=== PATIENT | male | born 1945 | race Caucasian/White ===

== ENCOUNTER → 2018-06-28 13:25 | Outpatient (POV) | payer MEDICARE, SELFPAY | PROVIDERS: Family Provider Family Medicine; PCP Family Medicine; Visit Provider Dermatology | DX: Z00.00 Encounter for general adult medical examination without abnormal findings (principal) ==

== ENCOUNTER → 2018-11-15 12:50 | Outpatient (POV) | payer MEDICARE, SELFPAY | PROVIDERS: Visit Provider Dermatology | DX: Z00.00 Encounter for general adult medical examination without abnormal findings (principal) ==

== ENCOUNTER → 2018-12-27 15:19 | Outpatient (POV) | payer MEDICARE, SELFPAY | PROVIDERS: Visit Provider Dermatology | DX: Z00.00 Encounter for general adult medical examination without abnormal findings (principal) ==

== ENCOUNTER → 2019-01-17 14:01 | Outpatient (POV) | payer MEDICARE, SELFPAY | PROVIDERS: Visit Provider Dermatology | DX: Z00.00 Encounter for general adult medical examination without abnormal findings (principal) ==

== ENCOUNTER → 2019-07-04 12:58 | Outpatient (POV) | payer MEDICARE, SELFPAY | PROVIDERS: Visit Provider Dermatology | DX: Z00.00 Encounter for general adult medical examination without abnormal findings (principal) ==

== ENCOUNTER → 2019-07-12 13:30 | Outpatient (CLI) | payer MEDICARE, SELFPAY ==
--- NOTE | 2019-07-12 13:33 | CT_ITS ---
PROCEDURE: CT LUNG SCREENING CLINICAL INDICATION: H/O NICOTINE DEPENDENCE Fifty-three pack-year smoking history, asymptomatic for lung cancer COMPARISON: No exams were available for comparison TECHNIQUE: The exam was performed on a GE Light Speed [address] scanner using 2.90 mGy CTDI. A low dose helical CT CHEST was performed on a multi-detector scanner. All CT scans at the facility use one or more dose reduction, viz: automated exposure control, ma/kV adjustment per patient size (including targeted exams where dose is matched to indication, i.e. head), or iterative reconstruction technique. The LDCT was performed in a facility that meets the criteria for the screening program. Data regarding this exam was submitted to ACR which is an approved registry. The order for this exam indicates that it came as a result of a lung cancer screening counseling shard decision-making visit that included all the elements required of such a visit including smoking cessation. The radiologist interpreting this exam meets the CMS criteria for the LDCT lung cancer screening program. The exam is reported using the Lung-RADS classification scale and reported to the ACR registry. NOTE: This study was performed for the specific purposes of lung cancer screening and is not an alternative to diagnostic chest CT. RADIATION DOSE: CTDI vol(CT dose Index-volume) = 2.90mG DLP (Dose Length Product) = 106.81 mGcm FINDINGS: There is an 8 mm noncalcified fissural nodule at the junction of the right minor and major fissure laterally. Several small 3-4 mm nodular opacities are present in the upper lobes. COPD. OTHER FINDINGS: Coronary artery calcifications. There is mild pericardial thickening centrally at 16 mm. There is some mitral valve annular calcification noted. There is mild wedging involving T5-T6 and T7 which appears chronic IMPRESSION: 1. Lung rads category 3 probably benign finding regarding upper lobe nodular opacities and 8 mm fissural nodule on the right. Recommend six-month diagnostic CT follow-up. 2. Coronary artery disease with mild pericardial thickening Dictated by: Pablo Araya MD 07/12/2019 16:36 Electronically signed by Pablo Araya MD in [place] 07/23/2019 07:07
== END ==
PROVIDERS: PCP Family Medicine; Visit Provider Family Medicine
DX: Z87.891 Personal history of nicotine dependence (principal); Z12.2 Encounter for screening for malignant neoplasm of respiratory organs

== ENCOUNTER → 2019-11-07 09:45 | Outpatient (POV) | payer MEDICARE, SELFPAY | PROVIDERS: PCP Dermatology; Visit Provider Dermatology | DX: Z00.00 Encounter for general adult medical examination without abnormal findings (principal) ==

== ENCOUNTER → 2020-06-07 13:34 | Outpatient (CLI) | payer MEDICARE, SELFPAY ==
--- NOTE | 2020-06-07 13:44 | CT_ITS ---
PROCEDURE: CT CHEST WO/W CON CLINCAL INDICATION: PULMONARY NODULES Follow-up pulmonary nodules, abnormal screening study COMPARISON: CT CT LUNG SCREENING from 07/12/2019 TECHNIQUE: IV Contrast: 75ml Optiray 350 Axial images obtained with sagittal and coronal reformats. All CT scans at the facility use one or more dose reduction, viz: automated exposure control, ma/kV adjustment per patient size (including targeted exams where dose is matched to indication, i.e. head), or iterative reconstruction technique. FINDINGS: HEART AND MEDIASTINAL STRUCTURES: No mediastinal or hilar mass. Coronary artery calcifications are present. There is thickening of the pericardium anteriorly consistent with pericardial effusion measuring up 2 1.4 cm. There is nonspecific thickening of the esophagus. Unenhanced images demonstrates moderate coronary artery calcification as well as aortic valve calcification. LUNGS AND PLEURAL SPACES: COPD with faint reticular pattern. 8 mm fissural nodule once again noted on the right not significantly changed. Mild diffuse bronchial thickening. There is some scarring in the left lower lobe medially. There are few scattered small 2-3 mm nodules as before which are nonspecific. No new suspicious nodules are evident. BONY STRUCTURES: Degenerative changes thoracic spine UPPER ABDOMEN: Unremarkable. ADDITIONAL FINDINGS: No other significant abnormalities. IMPRESSION: Overall stable CT appearance of the chest. There is COPD with bronchial thickening and mildly prominent reticular/interstitial markings. Stable fissural nodule on the right and multiple 2-3 mm nodular opacities. No new suspicious nodules evident. Coronary artery disease with pericardial effusion which is slightly more prominent compared to the previous exam Recommend continued annual LDCT follow-up Dictated by: Pablo Araya MD 06/08/2020 13:40 Pablo Araya MD in [place] 06/08/2020 13:40
== END ==
PROVIDERS: PCP Family Medicine; Visit Provider Family Medicine
DX: R91.1 Solitary pulmonary nodule (principal)
CPT/HCPCS: 71270; Q9967

== ENCOUNTER 2020-12-07 09:03 | Emergency (ER) | payer MEDICARE, SELFPAY ==
[2020-12-07 09:08] VITALS: BP 129/79; PULSE 82; RESP 14; TEMP 36.6; O2SAT 95; BMI 38.0
--- NOTE | 2020-12-07 09:24 | HMH.EDUTC ---
[facility] [place] Disposition Clinical Impression: COVID-19 Disposition: Home, Self-Care Condition on Discharge: Good Instructions: DI for COVID-19 (Suspected or Confirmed ), Preventing the Spread of Coronavirus Discharge Instructions Referrals: Brendan Kathleen MD [Primary Care Provider] - Time of Disposition: 09:34 Medical Decision Making - Mark Inquiry Pt receiving controlled substance: No Vital Signs: 12/07/20 09:08 Temperature 97.9 F Temperature Source Tympanic Pulse Rate [Right] 82 Respiratory Rate 14 Blood Pressure [Right Arm] 129/79 Blood Pressure Mean [Right Arm] 95 Blood Pressure Source [Right Arm] Automatic Cuff Blood Pressure Position [Right Arm] Sitting 02 Sat by Pulse Oximetry 95 Oxygen Delivery Method Room Air Orders (Tests/Meds): ORDERS Category Date Time Status Covid-19 Nasal PCR ([facility]) Routine Lab 12/07/20 09:05 Received [facility] [place] HPI - General Chief complaint: Urgent Treatment Center Stated complaint: cov test Time Seen by Provider: 12/07/20 09:24 Mode of Arrival: Ambulatory Source of Information: Patient Limitations: No Limitations Description of Symptoms (Recalled from Triage Doc. by RN): pt needs a presurgical covid test. HEENT Symptoms (Recalled from RN notes): No Resp Symptoms (Recalled from RN notes): No Skin Symptoms (Recalled from RN notes): No MS Symptoms (Recalled from RN notes): No Functional Status (Recalled from RN notes): na - History of Present Illness Provider Complaint: 75 yr old male presents for covid test for a out pt colonoscopy in [facility] on wednesday - Related Data Home Medications Medication Instructions Recorded Confirmed albuterol sulfate 90 mcg/actuation 2 puffs INHALATION BID 11/27/19 11/27/20 aerosol inhaler amlodipine 5 mg tablet 5 mg PO BID tab 11/27/19 11/27/20 aspirin 81 mg tablet,delayed 81 mg PO DAILY 11/27/19 11/27/20 release atorvastatin 40 mg tablet 40 mg PO DAILY tab 11/27/19 11/27/20 finasteride 5 mg tablet 5 mg PO DAILY tab 11/27/19 11/27/20 losartan 100 mg tablet 100 mg PO DAILY tab 11/27/19 11/27/20 montelukast 10 mg tablet 10 mg PO DAILY tab 11/27/19 11/27/20 rlxijqlf-krwdpcwu-rhfvf acid 400 1 tab PO DAILY 11/27/19 11/27/20 mcg-vit K 20 mcg-lycop 300 mcg tablet ipratropium bromide 42 mcg (0.06 spray INTRANASAL 08/29/20 11/27/20 %) nasal spray tiotropium bromide 2.5 INHALATION 08/29/20 11/27/20 mcg/actuation mist for inhalation Previous Rx's Medication Instructions Recorded Benzonatate [Benzonatate 200mg Cap] 200 mg PO Q8HP PRN 10 Days #30 cap 12/04/19 diclofenac sodium 1 % topical gel 4 g TOPICAL QID PRN 30 Days #100 g 11/27/20 Allergies Allergy/AdvReac Type Severity Reaction Status Date / Time No Known Allergies Allergy Verified 12/07/20 09:08 - Worker's Comp Is this a Worker's Comp case?: No [facility] History - Hepatitis A Screen Drug use history?: No High risk sexual behaviors?: No History of sexually transmitted infection?: No Currently employed?: No Childcare worker?: No Do you have indoor plumbing?: Yes Do you have electricity?: Yes Attestation statement:: This patient has been screened for Hepatitis A risk factors. I have reviewed the patient's past medical history: Yes Medical History: Reports:: Chronic Obstructive Pulmonary Disease (COPD), Hyperlipidemia, Hypertension, Lung Disease Other Surgeries: Yes: Colonoscopy Comment: Testicle Removal 1959. [place] Teeth Extraction 1963 - Social History Smoking Status: Current every day smoker # Packs/Day (cigarettes): 1 Alcohol Intake: never Alcohol Intake Frequency:: holidays/special occasions only Occupational Status: retired Family Hx:: Diabetes, Cancer, Heart Attack, Stroke, Hypertension, Hyperlipidemia ROS Obtained: Yes Systems reviewed as appropriate & no additional complaints - Constitutional Constitutional: Reports system reviewed and no additional complaints, except as docu, Denies fatigue, Denies fever(s) - Eyes Eye
[2020-12-07 09:32] VITALS: BP 124/77; PULSE 86; RESP 16; TEMP 36.6
[2020-12-07 17:16] LABS: Adenovirus,PCR Not Detected (NotDetected); Bordetella Pertussis Not Detected (NotDetected); Chlamydophila Pneumoniae, PCR Not Detected (NotDetected); Coronavirus 19, PCR Not Detected (NotDetected); Coronavirus 229E Not Detected (NotDetected); Coronavirus NL63 Not Detected (NotDetected); Coronavirus OC43 Not Detected (NotDetected); Coronovirus HKU1,PCR Not Detected (NotDetected); Human Metapneumovirus Not Detected (NotDetected); Influenza A, PCR Not Detected (NotDetected); Influenza AH1, 2009 Not Detected (NotDetected); Influenza AH1, PCR Not Detected (NotDetected); Influenza AH3,PCR Not Detected (NotDetected); Influenza B, PCR Not Detected (NotDetected); Mycoplasma Pneumoniae, PCR Not Detected (NotDetected); Parainfluenza 1, PCR Not Detected (NotDetected); Parainfluenza 2, PCR Not Detected (NotDetected); Parainfluenza 3, PCR Not Detected (NotDetected); Parainfluenza 4, PCR Not Detected (NotDetected); Respiratory Syncytial Virus Not Detected (NotDetected); Rhinovirus/Enterovirus Not Detected (NotDetected)
== END 2020-12-07 09:42 | disposition home or self-care (01) ==
PROVIDERS: Emergency Provider Nurse Practitioner Family; PCP Family Medicine
DX: Z20.822 Contact with and (suspected) exposure to COVID-19 (principal); J44.9 Chronic obstructive pulmonary disease, unspecified; E78.5 Hyperlipidemia, unspecified; I10 Essential (primary) hypertension; F17.210 Nicotine dependence, cigarettes, uncomplicated; Z79.899 Other long term (current) drug therapy
CPT/HCPCS: G0463; 87581; 87633; 87798; 99202

== ENCOUNTER → 2021-03-31 07:45 | Outpatient (CLI) | payer MEDICARE, SELFPAY ==
[2021-03-31 08:30] VITALS: PULSE 68; PULSE 69
== END ==
PROVIDERS: PCP Family Medicine; Visit Provider Internal Medicine Pulmonary Disease
DX: R06.00 Dyspnea, unspecified (principal)
CPT/HCPCS: 94060; 94618; 94726; 94729

== ENCOUNTER → 2021-05-16 14:45 | Outpatient (CLI) | payer MEDICARE, SELFPAY ==
--- NOTE | 2021-05-16 14:45 | CT_ITS ---
PROCEDURE: CT LUNG SCREENING CLINICAL INDICATION: lung cancer screening COMPARISON: CT CT CHEST WO/W CON from 06/07/2020 TECHNIQUE: The exam was performed on a GE Light Speed [address] scanner using 2.90 mGy CTDI. A low dose helical CT CHEST was performed on a multi-detector scanner. All CT scans at the facility use one or more dose reduction, viz: automated exposure control, ma/kV adjustment per patient size (including targeted exams where dose is matched to indication, i.e. head), or iterative reconstruction technique. The LDCT was performed in a facility that meets the criteria for the screening program. Data regarding this exam was submitted to ACR which is an approved registry. The order for this exam indicates that it came as a result of a lung cancer screening counseling shard decision-making visit that included all the elements required of such a visit including smoking cessation. The radiologist interpreting this exam meets the [facility] criteria for the LDCT lung cancer screening program. The exam is reported using the Lung-RADS classification scale and reported to the ACR registry. NOTE: This study was performed for the specific purposes of lung cancer screening and is not an alternative to diagnostic chest CT. RADIATION DOSE: CTDI vol(CT dose Index-volume) = 2.90mG DLP (Dose Length Product) = 104.73 mGcm FINDINGS: COPD with coarsening bronchovascular markings similar to the previous exam. Stable Jennifer fissural nodule along the right major fissure at 8 mm. No new nodules apparent. OTHER FINDINGS: Coronary artery calcifications. Mild thickening the pericardium anteriorly measuring up to 12 mm not significantly changed. Degenerative changes thoracic spine IMPRESSION: Lung-RADS Category 2 Benign Appearance or Behavior Follow-up: Continue annual screening with LDCT in 12 months Dictated by: Pablo Araya MD 05/19/2021 08:51 Pablo Araya MD in [place] 05/19/2021 08:51
== END ==
PROVIDERS: PCP Family Medicine; Visit Provider Internal Medicine Pulmonary Disease
DX: Z87.891 Personal history of nicotine dependence (principal); Z12.2 Encounter for screening for malignant neoplasm of respiratory organs
CPT/HCPCS: 71271

== ENCOUNTER → 2021-06-19 11:37 | Outpatient (CLI) | payer MEDICARE, SELFPAY | PROVIDERS: PCP Family Medicine; Visit Provider Internal Medicine Pulmonary Disease | DX: R06.09 Other forms of dyspnea (principal) | CPT/HCPCS: 94762 ==

== ENCOUNTER → 2021-06-23 08:47 | Outpatient (CLI) | payer MEDICARE, SELFPAY ==
--- NOTE | 2021-06-23 08:50 | US_ITS ---
PROCEDURE: US ABD. AORTA SCREENING CLINICAL INDICATION: AAA SCREENING DUE TO AGE AND SMOKING HX COMPARISON: CT CT CHEST WO/W CON from 06/07/2020 FINDINGS: Mild fusiform dilatation the lower abdominal aorta measuring up to 4 cm in AP dimension and 3.6 cm transverse. The iliac arteries are not well demonstrated. IMPRESSION: 4 cm fusiform lower abdominal aortic aneurysm Dictated by: Pablo Araya MD 06/24/2021 08:30 Pablo Araya MD in [place] 06/24/2021 08:30
== END ==
PROVIDERS: PCP Family Medicine; Visit Provider Family Medicine
DX: Z13.6 Encounter for screening for cardiovascular disorders (principal)
CPT/HCPCS: 76705

== ENCOUNTER → 2021-06-24 13:29 | Outpatient (POV) | payer MEDICARE, SELFPAY | PROVIDERS: Visit Provider Dermatology | DX: Z00.00 Encounter for general adult medical examination without abnormal findings (principal) ==

== ENCOUNTER → 2021-12-10 20:18 | Outpatient (CLI) | payer MEDICARE, SELFPAY | PROVIDERS: PCP Family Medicine; Visit Provider Internal Medicine Cardiovascular Disease | DX: G47.33 Obstructive sleep apnea (adult) (pediatric) (principal); R09.02 Hypoxemia; G47.36 Sleep related hypoventilation in conditions classified elsewhere | CPT/HCPCS: 95810 ==

== ENCOUNTER → 2022-01-01 20:22 | Outpatient (CLI) | payer MEDICARE, SELFPAY | PROVIDERS: PCP Family Medicine; Visit Provider Internal Medicine Pulmonary Disease | DX: G47.33 Obstructive sleep apnea (adult) (pediatric) (principal) | CPT/HCPCS: 95811 ==

== ENCOUNTER → 2022-01-28 08:50 | Outpatient (CLI) | payer MEDICARE, SELFPAY ==
--- NOTE | 2022-01-28 08:54 | US_ITS ---
FINAL REPORT CLINICAL HISTORY: AAA FINDINGS: Sonographic images were obtained of the abdominal aorta. The abdominal aorta measures up to 3.8 cm in greatest dimensions. The common iliac arteries are within normal limits. IMPRESSION: 3.8 cm abdominal aortic aneurysm. Reviewed, Interpreted and Dictated by Andre Casas III, MD Transcribed by Davis Su Authenticated by Andre Casas III, MD on 01/28/2022 10:16:14 AM [facility]
== END ==
PROVIDERS: PCP Family Medicine; Visit Provider Family Medicine
DX: I71.4 Abdominal aortic aneurysm, without rupture (principal)
CPT/HCPCS: 76705

== ENCOUNTER → 2022-05-21 09:45 | Outpatient (CLI) | payer MEDICARE, SELFPAY ==
--- NOTE | 2022-05-21 09:45 | CT_ITS ---
FINAL REPORT CLINICAL HISTORY: lung cancer screening, hx smoker, quit 6 months ago, smoked 1 pack a day for 56 years COMPARISON: May 16, 2021 FINDINGS: Low-Dose Chest CT Axial images were obtained from the lung apex to the mid abdomen by computed tomography. Low-dose protocol was utilized. CTDI vol (mGy): 2.90 DLP (mGy-cm): 103.42 There is no axillary adenopathy. There is no hilar adenopathy. There are multiple borderline size mediastinal lymph nodes which are stable. The heart is proper size. Moderate coronary artery calcifications are stable. There is a small pericardial effusion, stable. There is no pleural effusion. Limited images of the upper abdomen are unremarkable. Lung window images demonstrate mild changes of emphysema. A nodule along the right major fissure measures 10 mm and was 8 mm. This is visually somewhat larger. There are multiple less than 3 mm other pulmonary nodules which are visually stable. Some of these are calcified. IMPRESSION: Nodule along the right major fissure has increased in size. Lung RADS category 3. Recommend 6 month follow-up low-dose chest CT. Reviewed, Interpreted and Dictated by Andre Casas III, MD Transcribed by Zulma Monaco Authenticated and . [facility]
== END ==
PROVIDERS: PCP Family Medicine; Visit Provider Internal Medicine Pulmonary Disease
DX: Z87.891 Personal history of nicotine dependence (principal); Z12.2 Encounter for screening for malignant neoplasm of respiratory organs
CPT/HCPCS: 71271

== ENCOUNTER → 2022-11-24 06:14 | Outpatient (CLI) | payer MEDICARE, SELFPAY ==
--- NOTE | 2022-11-24 06:15 | CT_ITS ---
FINAL REPORT TECHNIQUE: Axial images were obtained from the lung apex to the mid abdomen by computed tomography. Coronal reformatted images were obtained. This study was performed with techniques to keep radiation doses as low as reasonably achievable, (ALARA). Individualized dose reduction techniques using automated exposure control or adjustment of mA and/or kV according to the patient''s size were employed. CLINICAL HISTORY: 6 months - November 2022 follow-up lung nodule COMPARISON: 05/21/2022 FINDINGS: There is no axillary adenopathy. There is no hilar or mediastinal adenopathy. Heart size is normal. Small pericardial effusion is identified. Limited images of the upper abdomen are unremarkable. There is a stable, 10 mm nodule along the right major fissure. Multiple other 3 mm less pulmonary nodules are identified which are stable. There is mild atelectasis or scarring in the lung bases. IMPRESSION: Stable 10 mm nodule along the right major fissure. Multiple other small pulmonary nodules, stable. Recommend follow-up low-dose chest CT in 12 months. Reviewed, Interpreted and Dictated by Andre Casas III, MD Transcribed by Jessica Calderon Authenticated and [facility]
== END ==
PROVIDERS: PCP Family Medicine; Visit Provider Internal Medicine Pulmonary Disease
DX: R91.8 Other nonspecific abnormal finding of lung field (principal)
CPT/HCPCS: 71250

== ENCOUNTER → 2023-05-13 07:47 | Outpatient (CLI) | payer MEDICARE, SELFPAY ==
--- NOTE | 2023-05-13 08:13 | US_ITS ---
FINAL REPORT CLINICAL HISTORY: AAA COMPARISON: 01/28/2022 FINDINGS: Sonographic images were obtained of the abdominal aorta. The abdominal aorta measures up to 4 cm in greatest dimension, very slightly enlarged when compared to the prior exam of 2021 when the aneurysm measured 3.8 cm in diameter. There is slightly limited evaluation of the common iliac arteries secondary to body habitus, however no iliac artery dilatation is seen. IMPRESSION: Abdominal aortic aneurysm, currently 4 cm in size. The most recent exam of January 2022 showed a 3.8 cm in diameter aneurysm, compatible with minimal enlargement. Reviewed, Interpreted and Dictated by Gurjit Perez MD Transcribed by Julia Cooley Authenticated and [facility]
== END ==
PROVIDERS: PCP Family Medicine; Visit Provider Family Medicine
DX: I71.40 Abdominal aortic aneurysm, without rupture, unspecified (principal)
CPT/HCPCS: 76705

== ENCOUNTER 2023-09-15 13:58 | Outpatient (CLI) | payer MEDICARE, SELFPAY | END 2023-09-15 23:59 | LOC: RT 13:59 | PROVIDERS: PCP Family Medicine; Visit Provider Specialist | DX: G47.33 Obstructive sleep apnea (adult) (pediatric) (principal) | CPT/HCPCS: 94762 ==

== ENCOUNTER 2023-11-09 15:11 | Outpatient (POV) | payer MEDICARE, SELFPAY | END 2023-11-09 23:59 | disposition home or self-care (01) | LOC: SC 15:12 | PROVIDERS: PCP Family Medicine; Visit Provider Dermatology | DX: Z00.00 Encounter for general adult medical examination without abnormal findings (principal) ==

== ENCOUNTER 2023-12-14 14:07 | Outpatient (CLI) | payer MEDICARE, SELFPAY ==
--- NOTE | 2023-12-14 14:08 | CT_ITS ---
FINAL REPORT TECHNIQUE: Axial CT images of the chest were obtained without contrast. Low-dose protocol was utilized. This study was performed with techniques to keep radiation doses as low as reasonably achievable (ALARA). Individualized dose reduction techniques using automated exposure control or adjustment of mA and/or kV according to the patient's size were employed. CLINICAL HISTORY: lung cancer screening former smoker, quit 2 years ago. smoked 1.5 ppd. smoked 56 years COMPARISON: 05/21/2022 FINDINGS: CT CHEST WITHOUT, LOW DOSE SCREENING CT Di Vol: 2.90 mGy DLP: 110.98 mGy*cm There is no axillary, mediastinal, or hilar adenopathy. The heart size is normal. Small pericardial effusion is stable. There is no pleural effusion. There are moderate coronary artery calcifications. The lung windows show interval enlargement of the nodule from 10 mm to 12 mm adjacent to the major fissure. The nodule appears to be at the posterior aspect of the right middle lobe on sagittal images. There is a 4 mm nodule in the left lower lobe on image 46 which is stable. There are several other less than 5 mm nodules which are also stable. Limited images of the upper abdomen demonstrate no acute findings. IMPRESSION: Interval enlargement right lung nodule to 12 mm. LR Category 4B: PET/CT is recommended. Reviewed, Interpreted and Dictated by Andre Casas III, MD Transcribed by Ami Romero Authenticated and . [facility]
[2023-12-14 14:55] VITALS: PULSE 87; PULSE 91
[2023-12-14] MEDS: ALBUTEROL 0.083% 2.5 MG/3 ML NEB IH (14:55)
== END 2023-12-14 23:59 ==
LOC: RAD 14:08
PROVIDERS: PCP Family Medicine; Visit Provider Internal Medicine Pulmonary Disease
DX: F17.210 Nicotine dependence, cigarettes, uncomplicated (principal); Z12.2 Encounter for screening for malignant neoplasm of respiratory organs; R91.1 Solitary pulmonary nodule
CPT/HCPCS: 71271; 94060; 94618; 94640

== ENCOUNTER 2024-03-20 15:18 | Outpatient (CLI) | payer MEDICARE, SELFPAY ==
--- NOTE | 2024-03-20 15:18 | CT_ITS ---
FINAL REPORT TECHNIQUE: Axial CT images were performed from the lung apices through the upper abdomen. Coronal and sagittal reformats were submitted. This study was performed with techniques to keep radiation doses as low as reasonably achievable (ALARA). Individualized dose reduction techniques using automated exposure control or adjustment of mA and/or kV according to the patient's size were employed. CLINICAL HISTORY: 3 months follow-up March 2024 COMPARISON: 12/14/2023 FINDINGS: There is no axillary adenopathy. There are multiple bilateral small mediastinal nodes present. Heart size is normal. There is a small pericardial effusion noted. Limited images of the upper abdomen are unremarkable. There is a persistent nodular opacity adjacent to the right major fissure, measuring 12 mm in size, stable since the prior CT of December. This is best seen on image #42. There are multiple other less than 5 mm in size nodules, some calcified, all stable. There are no new masses or nodules identified. IMPRESSION: Persistent nodular opacity adjacent to the right major fissure, stable since the prior CT of December. Recommend a 6-month follow-up CT of the chest for further evaluation. Reviewed, Interpreted and Dictated by Andre Casas III, MD Transcribed by Julia Cooley Authenticated and [facility]
== END 2024-03-20 23:59 | disposition home or self-care (01) ==
LOC: RAD 15:18
PROVIDERS: PCP Family Medicine; Visit Provider Internal Medicine Pulmonary Disease
DX: R91.8 Other nonspecific abnormal finding of lung field (principal)
CPT/HCPCS: 71250

== ENCOUNTER 2024-04-27 07:45 | Outpatient (CLI) | payer MEDICARE, SELFPAY ==
--- NOTE | 2024-04-27 07:49 | US_ITS ---
FINAL REPORT TECHNIQUE: Ultrasound images of the abdominal aorta were obtained. CLINICAL HISTORY: ABD AORTIC ANEURYSM W/O RUPTURE COMPARISON: None FINDINGS: ULTRASOUND OF THE ABDOMINAL AORTA There is an abdominal aortic aneurysm measuring up to 4.6 cm in the distal abdominal aorta. IMPRESSION: Distal abdominal aortic aneurysm. If indicated CTA could further evaluate. Reviewed, Interpreted and Dictated by Andre Casas III, MD Transcribed by Ami Romero Authenticated and [facility]
== END 2024-04-27 23:59 | disposition home or self-care (01) ==
LOC: RAD 07:46
PROVIDERS: PCP Family Medicine; Visit Provider Family Medicine
DX: I71.40 Abdominal aortic aneurysm, without rupture, unspecified (principal)
CPT/HCPCS: 76770

== ENCOUNTER 2024-10-05 14:12 | Outpatient (CLI) | payer MEDICARE, SELFPAY ==
--- NOTE | 2024-10-05 14:13 | CT_ITS ---
FINAL REPORT TECHNIQUE: Axial images were obtained through the chest without contrast. Coronal and sagittal images were obtained and reviewed. Insert low-dose CLINICAL HISTORY: .6 MONTH F/U COMPARISON: 03/20/2024 FINDINGS: There has been significant interval increase in the size of the pericardial effusion. On the coronal reconstruction images this measures up to 2 cm in depth. Dense coronary artery calcifications are seen in the LAD. The heart size is normal. There is no pleural effusion. Lesion along the right major fissure is again identified measuring 1.3 x 1.1 cm in greatest dimension. It appears slightly larger than on the previous exam and is well seen on image 122 of series 3. Again noted are multiple tiny nodules bilaterally. 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 These nodules appear stable from the prior study. Limited images of the upper abdomen are unremarkable. IMPRESSION: Significant interval increase in size of pericardial effusion. Increased in size of nodule along the right major fissure. Recommend PET-CT scan to better characterize. Reviewed, Interpreted and Dictated by Gurjit Perez MD Transcribed by Ami Romero Authenticated and [facility] [place] [place]
== END 2024-10-05 23:59 | disposition home or self-care (01) ==
LOC: RAD 14:13
PROVIDERS: PCP Family Medicine; Visit Provider Internal Medicine Pulmonary Disease
DX: R91.8 Other nonspecific abnormal finding of lung field (principal)
CPT/HCPCS: 71250

== ENCOUNTER 2024-11-29 14:13 | Outpatient (CLI) | payer MEDICARE, SELFPAY ==
--- NOTE | 2024-11-29 14:13 | CT_ITS ---
FINAL REPORT CLINICAL HISTORY: 3-month follow-up COMPARISON: 10/05/2024 FINDINGS: CT CHEST without contrast TECHNIQUE: Axial CT without contrast This study was performed with techniques to keep radiation doses as low as reasonably achievable, (ALARA). Individualized dose reduction techniques using automated exposure control or adjustment of mA and/or kV according to the patient''s size were employed. FINDINGS: No acute lung disease is present . There is a 2 mm nodule in the left lower lobe on image 45 which is stable. There is also a stable, 2 mm left lower lobe nodule on image 46. Oval nodule along the lateral right major fissure on image 39 and measures 13 mm, also stable. There is a moderate pericardial effusion measuring up to 15 mm along the anterior heart, previously measured 17 mm which is essentially unchanged. There is no pleural effusion. No adenopathy or mass lesion is present . IMPRESSION: Stable, benign appearing lung nodules. Recommend 12-month follow-up. Stable pericardial effusion. Reviewed, Interpreted and Dictated by Ophelia Connor MD Transcribed by Jennyfer Smallwood Authenticated and [facility]
== END 2024-11-29 23:59 | disposition home or self-care (01) ==
LOC: RAD 14:13
PROVIDERS: PCP Family Medicine; Visit Provider Internal Medicine Pulmonary Disease
DX: R91.8 Other nonspecific abnormal finding of lung field (principal)
CPT/HCPCS: 71250

== ENCOUNTER 2025-02-19 06:59 | Outpatient (CLI) | payer MEDICARE, SELFPAY ==
--- OUTSIDE RECORDS SUMMARY | 2024-10-17 04:30 | XMS_ITS ---
Author Organization [facility] Address [address] [place] [id number] Care Team Providers Care Ops Analyst Name Role Phone Mannie Kathleen Primary Care Provider Results Component Value Reference Range Notes P-Comprehensive Metabolic Pa woody (CMP) Reviewed date:10/27/2024 12:26:23 PM Interpretation:Normal Performing Lab: Notes/Report: Test performed by [facility] [address] [place] [address] , [address], [place] [address] Deep Tolbert MD, Hand Mounter CLIA: [id number] Sodium 141 135-145 mmol/L Potassium 3.9 3.5-5.3 mmol/L Chloride 104 97-108 mmol/L CO2 28 22-32 mmol/L Glucose 95 65-99 mg/dL BUN 18 8-23 mg/dL Creatinine 1.15 0.70-1.30 mg/dL Calcium 9.2 8.6-10.4 mg/dL eGFR by Creatinine 66 >59 mL/min/1.73m2 Protein 7.0 6.0-8.3 g/dL Albumin 4.3 3.5-5.3 g/dL Alkaline Phosphatase 86 40-129 IU/L ALT (SGPT) 19 <5-55 IU/L AST (SGOT) 14 <5-46 IU/L Bilirubin, Total 0.8 <0.2-1.2 mg/dL A/G Ratio 1.6 1.1-2.5 P-Lipid Panel Reviewed date:10/27/2024 12:26:23 PM Interpretation:trigs 219, hdl 33 Performing Lab: Notes/Report: Test performed by [facility] [address] [facility] , [address], [place] [address] Deep Tolbert MD, Hand Mounter CLIA: [id number] Cholesterol 137 <200 mg/dL Triglycerides 219 <150 mg/dL HDL Cholesterol 33 >39 mg/dL Cholesterol / HDL Ratio 4.15 0.00-4.99 Ratio Non-HDL Cholesterol 104 <130 mg/dL LDL Cholesterol (Calculation) 60 <130 mg/dL LDL Cholesterol Levels* Less than 100 mg/dL Optimal 100 to 129 mg/dL Near Optimal/ Above Optimal 130 to 159 mg/dL Borderline High 160 to 189 mg/dL High 190 mg/dL and above Very High * Categories as recommended by the 2004 ATPIII guidelines LDL/HDL Ratio 1.8 <3.3 Ratio LDL Cholesterol Patient History Test Date: 10/26/2023 LDL Results: 54 Units: mg/dL % Change: - Test Date: 04/18/2024 LDL Results: 59 Units: mg/dL % Change: +9% Test Date: 10/17/2024 LDL Results: 60 Units: mg/dL % Change: +1% REASON FOR VISIT blood work Medications Medication SIG (Take, Route, Frequency, Duration) Notes Start Date End Date Status Arexvy 120 MCG/0.5ML as directed Intramuscular Active Albuterol Sulfate HFA 108 (90 Base) MCG/ACT 1 puff as needed Inhalation every 4 hrs Active Losartan Potassium 100 MG 1 tab(s) orally once a day Active Norvasc 5 MG 1 tab(s) orally Two times a day Active Atorvastatin Calcium 40 MG 1 tab(s) oral ly once a day (at bedtime) Active Anoro Ellipta 62.5-25 MCG/ACT 1 puff Inhalation Once a day Active Montelukast Sodium 10 MG 1 tab(s) orally once a day as needed Active Centrum Silver - 1 tab(s) orally once a day Active Lasix 20 MG 1 tab(s) orally once a day prn swelling Active ZyrTEC Allergy 10 MG 1 tab(s) orally once a day Active Proscar 5 MG 1 tab(s) orally once daily Active Problems Problem Type SNOMED Code ICD Code Onset Dates Problem Status W/U Status Risk Notes Problem Hyperlipidemia, unspecified (E78.5) Active confirmed Encounters Encounter Location Date Provider Diagnosis [facility] [address] [facility] [address] [place], [place] [id number] 10/17/2024 Mannie Kathleen Hyperlipidemia, unspecified E78.5 and Essential (primary) hypertension I10 Assessments Encounter Date Diagnosis (ICD Code) Assessment Notes Treatment Notes Treatment Clinical Notes Section Notes 10/17/2024 Hyperlipidemia, unspecified (ICD-10 - E78.5) 10/17/2024 Essential (primary) hypertension (ICD-10 - I10) Plan Of Treatment Next Appt Details Provider Name:Mannie Baeza 04/19/2025 09:30:00 AM, [address], [address], [place], [id number], Progress Notes * Luiz WAKEFIELDDOB: (79 yo M)Acc No.[id number]:10/17/2024 Patient: Luiz TAVARES Provider: Mannie Kathleen M.D. :1945 A ge:78 Y S ex:Male Date:10/17/2024 Address:[address] [place], [id number] Subjective: * Chief Complaints: * 1 . Blood work. * Medical History: * Medications: T aking Proscar 5 MG Tablet 1 tab(s) orally once daily , Taking Centrum Silver - Tablet 1 tab(s) orally once a day , Taking ZyrTEC Allergy 10 MG Tablet 1 tab(s) orally once a day , Taking Lasix 20 MG Tablet 1 tab(s) orally once a day prn swelling , Taking Montelukast Sodium 10 MG Tablet 1 tab(s) orally once a day as needed , Taking Anoro Ellipta 62.5-25 MCG/ACT Aerosol Powder Breath Activated 1 puff Inhalation Once a day , Taking Albuterol Sulfate HFA 108 (90 Base) MCG/ACT Aerosol Solution 1 puff as needed Inhalation every 4 hrs , Taking Arexvy 120 MCG/0.5ML Suspension Reconstituted as directed Intramuscular , Taking Atorvastatin Calcium 40 MG Tablet 1 tab(s) orally once a day (at bedtime) , Taking Norvasc 5 MG Tablet 1 tab(s) orally Two times a day , Taking Losartan Potassium 100 MG Tablet 1 tab(s) orally once a day , Medication List reviewed and reconciled with the patient Objective: * Vitals: Assessment: * Assessment: 1. H yperlipidemia, unspecified - E78.5 2 . E ssential (primary) hypertension - I10 Plan: * Treatment: Value Reference Range C holesterol / HDL Ratio 4.15 0.00-4.99 - Ratio * C holesterol 137 <200 - mg/dL * H DL Cholesterol 33 L >39 - mg/dL * L DL Cholesterol (Calculation) 60 <130 - mg/d L * L DL/HDL Ratio 1.8 <3.3 - Ratio * N on-HDL Cholesterol 104 <130 - mg/dL * T riglycerides 219 H <150 - mg/dL * Mannie Kathleen 10/23/2024 1 :48:07 PM >discussed with patient during office visit 2.?Essential (primary) hypertension?LAB: P-Comprehensive Metabolic Panel (CMP) (Collection Date & Time - 10/17/2024 08:23 AM)?Normal* Value Reference Range A /G Ratio 1.6 1.1-2.5 - * A lbumin 4.3 3.5-5.3 - g/dL * A lkaline Phosphatase 86 40-129 - IU/L * A LT (SGPT) 19 <5-55 - IU/L * A ST (SGOT) 14 <5-46 - IU/L * B ilirubin, Total 0.8 <0.2-1.2 - mg/dL * B UN 18 8-23 - mg/dL * C alcium 9.2 8.6-10.4 - mg/dL * C hloride 104 97-108 - mmol/L * C O2 28 22-32 - mmol/L * C reatinine 1.15 0.70-1.30 - mg/dL * G lucose 95 65-99 - mg/dL * P otassium 3.9 3.5-5.3 - mmol/L * S odium 141 135-145 - mmol/L * P rotein 7.0 6.0-8.3 - g/dL * e GFR by Creatinine 66 >59 - mL/min/1.73m2 * Mannie Kathleen 10/23/2024 1 :48:07 PM >discussed with patient during office visit * Billing Information: * Visit Code: * Procedure Codes: * Electronic signature of Mannie Kathleen MD on 02/19/2025 at 07:01 AM EDT Sign off status: Pending * Provider: Mannie Kathleen M.D. Date: 0 10/17/2024 Generated for Dulcei chester/Samreen/eTransmitting on: 0 02/19/2025 07:01 AM EDT
--- OUTSIDE RECORDS SUMMARY | 2024-10-19 05:45 | XMS_ITS ---
[facility] Address [address] [place] [id number] Care Team Providers Care Mine Geologist Name Role Phone Mannie Kathleen Primary Care Provider Allergies Allergen (clinical drug ingredient) Drug/Non Drug Allergy documented on EMR Reaction Allergy Type Onset Date Status lisinopril Lisinopril cough Drug Allergy Activ e REASON FOR VISIT 6 month check and AWV Medications Medication SIG (Take, Route, Frequency, Duration) Notes Start Date End Date Status Centrum Silver - 1 tab(s) orally once a day Active ZyrTEC Allergy 10 MG 1 tab(s) orally once a day Active Albuterol Sulfate HFA 108 (90 Base) MCG/ACT 1 puff as needed Inhalation every 4 hrs Active Montelukast Sodium 10 MG 1 tab(s) orally once a day as needed Active Anoro Ellipta 62.5-25 MCG/ACT 1 puff Inhalation Once a day Active Atorvastatin Calcium 40 MG 1 tab(s) oral ly once a day (at bedtime) Active Proscar 5 MG 1 tab(s) orally once daily Active Lasix 20 MG 1 tab(s) orally once a day prn swelling Active Norvasc 5 MG 1 tab(s) orally Two times a day Active Losartan Potassium 100 MG 1 tab(s) orally once a day Active Arexvy 120 MCG/0.5ML as directed Intramuscular Active Immunizations Vaccine Route Administration Date Status Comme nts Prevnar (PCV20) IM Intramuscular 10/19/2024 Administered Social History Tobacco Use: Social History Observation Description Date Details (start date - stop date) Former Smoker NA - NA CURRENT TOBACCO USE: Question Answer Notes Are you a: former smoker Quit November 2021 after smoking 1 pack of cigarettes per day since the age of 20 years Vital Signs Blood pressure systolic 128 mm Hg 10/19/19 25 Blood pressure diastolic 70 mm Hg 025 Heart Rate 91 /min 10/19/2024 Height 66.50 in 10/19/2024 Weight 287.2 lbs 10/19/2024 BMI 45.66 kg/m2 10/19/2024 Encounters Encounter Location Date Provider Diagnosis [facility] [address] [facility] [address] [place], [place] [id number] 10/19/2024 Mannie Kathleen Adult general medica l examination Z00.00 ; Dyslipidemia E78.5 ; Essential (primary) hypertension I10 ; Benign prostatic hyperplasia, unspecified whether lower urinary tract symptoms present N40.0 ; Chronic obstructive pulmonary disease, unspecified COPD type J44.9 ; Seasonal allergies J30.2 ; History of nicotine dependence Z87.891 ; Pulmonary nodule R91.1 ; Abdominal aortic aneurysm, without rupture, unspecified I71.40 and BMI 45.0-49.9, adult Z68.42 Assessments Encounter Date Diagnosis (ICD Code) Assessment Notes Treatment Notes Treatment Clinical Notes Section Notes 10/19/2024 Adult general medical examination (ICD-10 - Z00.00) Patient instructed to return to office Annually for Annual Wellness Visits to include annual screenings of Pain assessment, Functional Ability assessment, Cognitive Ability assessment, Fall Risk assessment, Depression screening and Bladder control screening. 10/19/2024 Dyslipidemia (ICD-10 - E78.5) 10/19/2024 Essential (primary) hypertension (ICD-10 - I10) 10/19/2024 Benign prostatic hyperplasia, unspecified whether lower urinary tract symptoms present (ICD-10 - N40.0) 10/19/2024 Chronic obstructive pulmonary disease, unspecified COPD type (ICD-10 - J44.9) 10/19/2024 Seasonal allergies (ICD-10 - J30.2) 10/19/2024 History of nicotine dependence (ICD-10 - Z87.891) 10/19/2024 Pulmonary nodule (ICD-10 - R91.1) 10/19/2024 Abdominal aortic aneurysm, without rupture, unspecified (ICD-10 - I71.40) Continue f/u with Dr. Starr 10/19/2024 BMI 45.0-49.9, adult (ICD-10 - Z68.42) Plan Of Treatment Medication Medication Name Sig Start Date Stop Date Notes Atorvastatin Calcium 40 MG 1 tab(s) oral ly once a day (at bedtime) Lasix 20 MG 1 tab(s) orally once a day prn swelling Norvasc 5 MG 1 tab(s) orally Two times a day Losartan Potassium 100 MG 1 tab(s) orally once a day Treatment Notes Assessment Notes Adult general medical examination Patien t instructed to return to office Annually for Annual Wellness Visits to include annual screenings of Pain assessment, Functional Ability assessment, Cognitive Ability assessment, Fall Risk assessment, Depression screening and Bladder control screening. Abdominal aortic aneurysm, w ithout rupture, unspecified Continue f/u with Dr. Starr Next Appt Details Follow Up: 6 Months, Reason: Provider Name:Mannie Baeza, 04/19/2025 09:30:00 AM, [address], [address] , [place], [place], [id number], Progress Notes * Luiz WAKEFIELDDOB: (79 yo M)Acc No.[id number]:10/19/2024 Annual Wellness Visit Patient: Luiz TAVARES Bo Provider: Mannie Kathleen M.D. :1945 A ge:78 Y S ex:Male Date:10/19/2024 Address:[address] [place], [place] [address] [facility] [id number] Subjective: * Chief Complaints: * 1 . 6 month check and AWV. * HPI: H PI: Patient is here today for a scheduled check up and a Medicare Annual Wellness Visit. See lab results d ana 10/17/2024. E NT/respiratory: He continues to follow with Dr. Degroot and respiratory status has been stable. He is scheduled for lung CT in the near future. He is due for pneumonia vaccine. C ardiology: Since his last office visit, he had consultation with vascular surgery regarding his AAA. He is having angiogram in December for consideration of a stent. M benson Reproductive: He continues to follow with Dr. Manrique for his BPH. * ROS: O PTHALMOLOGY: Negative for d enies vision issues. * Medical History: H yperlipidemia, HBP, PUD by EGD Dr. Frost - 2017, BPH - follows with Dr. Manrique, COPD, Tobacco abuse, 55 pack year smoking history as of 2019 - Quit smoking 11/2021, Pulmonary nodule - LDCT 06/2019 - follows with Dr. Degroot. Negative PET scan 03/2024, AAA - 3.8 cm (2021); 4.6 (2021), [place], Hypertension. * Surgical History: W ISDOM TEETH , testicle removed , prostate bx , C-scope/ polyp/ Dr. Frost 09/20/17, C-scope/ polyps/ Dr. Frost 11/2020. * Hospitalization/Major Diagno stic Procedure: s jocy as above , [facility] ER-cut left thigh with chainsaw 05/12/14. * Family History: F ather: alive. M other: alive. 1 son(s) . . * Social History: C URRENT TOBACCO USE A re you a: f ormer smoker Quit November 2021 after smoking 1 pack of cigarettes per day since the age of 20 years. C affeine: yes, frequency:. Marital Status: . Past smoking status: yes, PPD: 1 , years: since age of 21 yrs ,determination:. Alcohol: Yes, Type: , Frequency: ,Years: , Determination:. * Medications: T aking Proscar 5 MG [...] List reviewed and reconciled with the patient * Allergies: L isinopril: cough - Side Effects. Objective: * Vitals: W t:287.2, Temp:97.7, BP:128/70, HR:91, Nurse:Jose Miguel, Ht: 66.50, BMI:45.66. * Examination: C ardiology: General Appearance: p leasant, NAD. Weight gain noted. Carotid upstroke: n ormal, no bruits. Heart sounds: R RR, normal S1, S2. Murmur, click , gallop: n one. Lungs: c lear, no rales or wheezes. Abdomen: o bese, s oft, nontender. Extremities: T race ankle edema. * Physical Examination: G ENERAL: Pain Assessment: P ain level: 2, on a scale of 0-10 (with 10 being extreme pain). F unctional Status Assessment: P atient response to question of how often physical health interferes with daily activities: . Occasionally Able to perform ADLs-including meal preparation, grocery shopping, housework, laundry, taking medications or handling finances. Cognitive Status: alert and oriented. Ambulation Status: Fully ambulatory . F all Risk Assessment: I ndependant in ambulation, adequate lighting in home. Patient has NOT fallen or had trouble walking within the past 12 months. D epression Screening: D enies depressed mood or anxiety. Describes emotional health as: calm. B ladder Control Screening: D enies problems. Assessment: * Assessment: 1. A dult general medical examination - Z00.00 (Primary) 2 . D yslipidemia - E78.5 3 . E ssential (primary) hypertension - I10 4 . B enign prostatic hyperplasia, unspecified whether lower urinary tract symptoms present - N40.0 & #160; 5 . C hronic obstructive pulmonary disease, unspecified COPD type - J44.9 ?6. S easonal allergies - J30.2 7 . H istory of nicotine dependence - Z87.891 8 . P ulmonary nodule - R91.1 9 . A bdominal aortic aneurysm, without rupture, unspecified - I71.40 1 0. B PR 45.0-49.9, adult - Z68.42? Plan: * Treatment: 2. D yslipidemia Refill Atorvastatin Calcium Tablet, 40 MG, 1 tab(s), orally, once a day (at bedtime), 90, Refills 3. 3. E ssential (primary) hypertension Refill Losartan Potassium Tablet, 100 MG, 1 tab(s), orally, once a day, 90, Refills 3; R efill Lasix Tablet, 20 MG, 1 tab(s), orally, once a day prn swelling, 90, Refills 2; R efill Norvasc Tablet, 5 MG, 1 tab(s), orally, Two times a day, 180, Refills 3. 4. A bdominal aortic aneurysm, without rupture, unspecified Notes: Continue f/u with Dr. Starr * Immunizations: Prevnar (PCV20) : 0.5 mL (Route: Intramuscular) given by Kim Bañuelos MM on Right Arm (Seasonal allergies) * Procedure Codes: G 0439 ANNUAL WELLNESS VST; PPS SUBSQT VST, G0444 ANNUAL DEPRESSION SCREENING 15 MIN, 1090F PRES/ABSN URINE INCON ASSESS, 3288F FALL RISK ASSESSMENT DOCD, 1170F FXNL STATUS ASSESSED, 1159F MED LIST DOCD IN RCRD, 1003F LEVEL OF ACTIVITY ASSESS, 3017F COLORECTAL CA SCREEN DOC REV, 4040F PNEUMOC IMM ORDER/ADMIN, G8510 NEG SCR Depression PT NOT ELIG F/U/PLN DOC, 3074F SYST BP LT 130 MM HG, 3078F DIAST BP < 80 MM HG * Preventive Medicine: Counseling: E motional health: P atient encouraged to try connecting with family or friends to boost mood. B ladder control: M ethods of controlling or managing leakage of urine discussed. E xercise: P atient advised to start, increase or maintain level of exercise/physical activity. I njury prevention: F all prevention discussed. Discussed need for cane/walker. Potential trip hazards discussed. Immunizations: P neumococcal r ecommended. I nfluenza u p to date. Screening / Special Tests: C olonoscopy r ecent history: 12/10/2020. P SA?04/27/2023 at [facility], followed by Dr. Manrique. L silvia cancer screening CT Chest ordered by Dr. Degroot recommend PET scan. A AA screening AAA. * Follow Up: 6 Months * Billing Information: * Visit Code: 92222 Office Visit, Est Pt., Level 3. Modifiers: 25 * Procedure Codes: G0439 ANNUAL WELLNESS VST; PPS SUBSQT VST. G0444 ANNUAL DEPRESSION SCREENING 15 MIN. 1090F PRES/ABSN URINE INCON ASSESS. 3288F FALL RISK ASSESSMENT DOCD. 1170F FXNL STATUS ASSESSED. 1159F MED LIST DOCD IN RCRD. 1003F LEVEL OF ACTIVITY ASSESS. 3017F COLORECTAL CA SCREEN DOC REV. 4040F PNEUMOC IMM ORDER/ADMIN. G8510 NEG SCR Depression PT NOT ELIG F/U/PLN DOC. 3074F SYST BP LT 130 MM HG. 3078F DIAST BP < 80 MM HG. * Electronic signature of Mannie Kathleen MD on 02/19/2025 at 07:01 AM EDT Sign off status: Pending * Provider: Mannie Kathleen M.D. Date: 0 10/19/2024 Generated for Hoang briggs/Samreen/Rachelitting on: 0 02/19/2025 07:01 AM EDT History and Physical Notes * HPI (History of Present Illness) Category Sub-Category Detail Notes Category Not es HPI [facility] Well[facility]. See lab results drawn 10/17/2024 Physical Examination Category Sub-Category Detail Notes Section Note s GENERAL Pain Assessment: Pain level: 2, on a scale of 0-10 (with 10 being extreme pain) Functional Status Assessment: Patient response to question of how often physical health interferes with daily activities: . Occasionally Able to perform ADLs-including meal preparation, grocery shopping, housework, laundry, taking medications or handling finances. Cognitive Status: alert and oriented. Ambulation Status: Fully ambulatory Fall Risk Assessment: Independant in amb ulation, adequate lighting in home. Patient has NOT fallen or had trouble walking within the past 12 months Depression Screening: Denies depressed m ood or anxiety. Describes emotional health as: calm Bladder Control Screening: Denies proble ms Examination Category Sub-Category Detail Notes Category Not es Cardiology Lungs: clear, no rales or wheezes Heart sounds: RRR, normal S1, S2 Abdomen: obese, soft, nontend er Carotid upstroke: normal, no bruits Extremities: Trace ankle edema Murmur, click , gallop: none General Appearance: pleasant, NAD. Weigh t gain noted
--- OUTSIDE RECORDS SUMMARY | 2025-01-09 10:45 | XMS_ITS ---
Author Organization [facility] Address [address] [place] [id number] Care Team Providers Care Shingle Carrier Name Role Phone Mannie Kathleen Primary Care Provider [phone] Allergies Allergen (clinical drug ingredient) Drug/Non Drug Allergy documented on EMR Reaction Allergy Type Onset Date Status lisinopril Lisinopril cough Drug Allergy Activ e REASON FOR VISIT vertigo Medications Medication SIG (Take, Route, Frequency, Duration) Notes Start Date End Date Status Atorvastatin Calcium 40 MG 1 tab(s) oral ly once a day (at bedtime) Active Lasix 20 MG 1 tab(s) orally once a day prn swelling Active Losartan Potassium 100 MG 1 tab(s) orally once a day Active Medrol 4 MG as directed Orally 01/09/2025 Active Norvasc 5 MG 1 tab(s) orally Two times a day Active Montelukast Sodium 10 MG 1 tab(s) orally once a day as needed Active Albuterol Sulfate HFA 108 (90 Base) MCG/ACT 1 puff as needed Inhalation every 4 hrs Active Anoro Ellipta 62.5-25 MCG/ACT 1 puff Inhalation Once a day Active Meclizine HCl 25 MG 1 tab(s) Orally Thre e times a day 12/25/2024 Active Arexvy 120 MCG/0.5ML as directed Intramuscular Active Centrum Silver - 1 tab(s) orally once a day Active Proscar 5 MG 1 tab(s) orally once daily Active ZyrTEC Allergy 10 MG 1 tab(s) orally once a day Active Social History Tobacco Use: Social History Observation Description Date Details (start date - stop date) Former Smoker NA - NA CURRENT TOBACCO USE: Question Answer Notes Are you a: former smoker Quit November 2021 after smoking 1 pack of cigarettes per day since the age of 20 years Problems Problem Type SNOMED Code ICD Code Onset Dates Problem Status W/U Status Risk Notes Problem Sinusitis (44034095) Sinusitis (J32.9) Active confirmed Vital Signs Blood pressure systolic 120 mm Hg 01/10/20 25 Blood pressure diastolic 82 mm Hg 025 Heart Rate 99 /min 01/09/2025 Height 66.50 in 01/09/2025 Weight 288.2 lbs 01/09/2025 BMI 45.81 kg/m2 01/09/2025 Encounters Encounter Location Date Provider Diagnosis [facility] [address] [facility] [address] [facility] [address] [place] [id number] 01/09/2025 Mannie Kathleen Vertigo R42 and Sinusitis J32.9 Assessments Encounter Date Diagnosis (ICD Code) Assessment Notes Treatment Notes Treatment Clinical Notes Section Notes 01/09/2025 Vertigo (ICD-10 - R42) 01/09/2025 Sinusitis (ICD-10 - J32.9) Continue Z-Jean as prescribed by his dentist Plan Of Treatment Medication Medication Name Sig Start Date Stop Date Notes Medrol 4 MG as directed Orally 01/09/2025 Meclizine HCl 25 MG 1 tab(s) Orally Three times a day 12/12 Treatment Notes Assessment Notes Sinusitis Continue Z-Jean as pr escribed by his dentist Next Appt Details Follow Up: 2 Weeks, marzenan, [place] son: Provider Name:Mannie Buck et, 04/19/2025 09:30:00 AM, [address] [facility] [address] [facility], [address], [place] [id number], Progress Notes * Luiz WAKEFIELDDOB: (79 yo M)Acc No.[id number]:01/09/2025 Progress Notes Patient: Luiz TAVARES Provider: Mannie Kathleen M.D. :1945 A ge:79 Y S ex:Male Date:01/09/2025 Address:[address] [place], [id number] Subjective: * Chief Complaints: * 1 . Vertigo. * HPI: C ardiology: 79 year old male presents with c/o Dizziness P t sts he is here today with c/o vertigo. Pt sts today makes the 12th day with it. Pt sts he did have covid and sts that about 4 days later he felt better, and then he started with the vertigo and has had it since then. He describes his episodes of dizziness as being brief and fleeting. It typically occurs when he stands up quickly or when he turns over in bed. E NT/respiratory: He complains of nasal congestion, sinus pressure, and frontal headache. No fever. No blurred vision or double vision. Of note, he was seen by his dentist this morning and prescribed Z-Jean. * ROS: O PTHALMOLOGY: Negative for d enies vision issues. * Medical History: H yperlipidemia, HBP, PUD by EGD Dr. Frost - 2017, BPH - follows with Dr. Manrique, COPD, Tobacco abuse, 55 pack year smoking history as of 2019 - Quit smoking 11/2021, Pulmonary nodule - LDCT 06/2019 - follows with Dr. Dergoot. Negative PET scan 03/2024, AAA - 3.8 cm (2021); 4.6 (2021), ADELAIDA, Hypertension. * Surgical History: W ISDOM TEETH , testicle removed , prostate bx , C-scope/ polyp/ Dr. Frost 09/20/17, C-scope/ polyps/ Dr. Frost 11/2020. * Hospitalization/Major Diagno stic Procedure: s jocy as above , [facility] ER-cut left thigh with chainsaw [...] tab(s) orally once a day , Taking Montelukast Sodium 10 MG Tablet [...] once a day (at bedtime) , Taking Losartan Potassium 100 MG Tablet 1 tab(s) orally once a day , Taking Lasix 20 MG Tablet 1 tab(s) orally once a day prn swelling , Taking Norvasc 5 MG Tablet 1 tab(s) orally Two times a day , Taking Meclizine HCl 25 MG Tablet 1 tab(s) Orally Three times a day , Medication List reviewed and reconciled with the patient * Allergies: L isinopril: cough - Side Effects. Objective: * Vitals: W t: 288.2, Temp: 98.3, BP: 120/82, HR: 99, Nurse: [facility], Ht: 66.50, BMI:45.81. * Examination: C ardiology: General Appearance: NAD. HEENT: M ild to moderate nasal congestion. TMs are normal bilaterally.. Carotid upstroke: n ormal, no bruits. Heart sounds: R RR, normal S1, S2. Lungs: c lear, no rales or wheezes. Assessment: * Assessment: 1. V ertigo - R42 (Primary) 2 . S inusitis - J32.9 Plan: * Treatment: 2. S inusitis Start Medrol Tablet Therapy Pack, 4 MG, as directed, Orally, 1. Notes: Continue Z-Jean as prescribed by his dentist * Procedure Codes: G 2211 Complex e/m visit add on, 3074F SYST BP LT 130 MM HG, 3079F DIAST BP 80-89 MM HG * Follow Up: 2 Weeks, prn * Billing Information: * Visit Code: 47958 Office Visit, Est Pt., Level 3. * Procedure Codes: G2211 Complex e/m visit add on. 3074F SYST BP LT 130 MM HG. 3079F DIAST BP 80-89 MM HG. * Electronic signature of Mannie Kathleen MD on 02/19/2025 at 07:01 AM EDT Sign off status: Pending * Provider: Mannie Kathleen M.D. Date: 0 01/09/2025 Generated for Hoang briggs/Samreen/eTransmitting on: 0 02/19/2025 07:01 AM EDT History and Physical Notes * HPI (History of Present Illness) Category Sub-Category Detail Notes Category Not es ENT/respiratory Of note, he was seen by his dentist this morning and prescribed Z-Jean. Cardiology Dizziness Pt sts he is her e today with c/o vertigo. Pt sts today makes the 12th day with it. Pt sts he did have covid and sts that about 4 days later he felt better, and then he started with the vertigo and has had it since then He describes his episodes of dizziness as being brief and fleeting. It typically occurs when he stands up quickly or when he turns over in bed. Examination Category Sub-Category Detail Notes Category Not es Cardiology Lungs: clear, no rales or wheezes HEENT: Mild to moderate michel al congestion. TMs are normal bilaterally. Heart sounds: RRR, normal S1, S2 Carotid upstroke: normal, no bruits General Appearance: NAD
--- OUTSIDE RECORDS SUMMARY | 2025-01-16 08:33 | XMS_ITS | Encounter Summary ---
Author Organization [employer] Address [address] [place] [address] Care Team Providers Care Moisture Tester Name Role Phone Unavailable Primary Care Provider Unavailabl e Reason for Referral * CAT Scan (Routine) - New Request Specialty Diagnoses / Procedures Referred By Contac t Referred To Contact Radiology Diagnoses AAA (abdominal aortic aneurysm) (HCC) Procedures CTA abdomen & pelvis Nathan Starr MD [address] [place] [address] Phone: tel: fax: Referral ID Status Reason Start Date Expiration Date V isits Requested Visits Authorized [id number] New Request 01/16/2025 01/16/2026 1 1 Reason for Visit * CAT Scan (Routine) - New Request Specialty Diagnoses / Procedures Referred By Contac t Referred To Contact Radiology Diagnoses AAA (abdominal aortic aneurysm) (HCC) Procedures CTA abdomen & pelvis Nathan Starr MD [address] [place] [address] Phone: tel: fax: Referral ID Status Reason Start Date Expiration Date V isits Requested Visits Authorized [id number] New Request 01/16/2025 01/16/2026 1 1 Encounter Details Date Type Department Care Team (Latest Contact Info) Description 01/16/2025 8:33 AM EDT - 01/16/2025 11:59 PM EDT Hospital Encounter [facility] [address] [facility] [address] [place] [address] Nathan Starr MD [facility] [place] [address] AAA (abdominal aortic aneurysm) (HCC) Discharge Disposition: Home or Self Care Social History Tobacco Use Types Packs/Day Years Used Date Smoking Tobacco: Never Assessed Interpersonal Safety Answer Date Record ed Family or friends hurt you Not on file 12/26 Family or friends insult you Not on file Family or friends threaten you Not on file 0 12/27/2023 Family or friends scream or curse at you Not on file 12/27/2023 Food Insecurity Answer Date Recorded Food run out past 12 months Not on file 12/12 Food did not last past 12 months Not on file 12/27/2023 Employment Answer Date Recorded Help finding and keeping a job Not on file 0 12/27/2023 Family and Community Support Answer Rashard e Recorded Help with Day to Day Activities Not on file 12/27/2023 Feeling Lonely or Isolated Not on file 12/26 Educational Attainment Answer Date Gunnar rded Speak language other than Hungarian at home Not on file 12/27/2023 Want help with school or training Not on file 12/27/2023 Depression Answer Date Recorded PHQ-2 Risk Not on file 12/27/2023 Disabilities Answer Date Recorded Difficulty concentrating Not on file 024 Difficulty doing errands alone Not on file 0 12/27/2023 Substance Use Answer Date Recorded Used prescription meds for non-medical reasons N ot on file 12/27/2023 Used illegal drugs past 12 months Not on file 12/27/2023 Sex and Gender Information Value Date Recorded Sex Assigned at Not on file Legal Sex Male 12:28 PM CDT Gender Identity Not on file Sexual Orientation Not on file documented as of this encounter Plan of Treatment Upcoming Encounters Date Type Department Care Team (Late st Contact Info) Description 03/08/2025 9:53 AM EDT Hospital Encounter [facility] [address] [place] [address] Nathan Starr MD [address] [facility] [place] [address] [place] [address] 03/08/2025 9:53 AM EDT - 03/08/2025 12:03 PM EDT Surgery [facility] [address] [place] [address] Nathan Starr MD [address] [facility] [place] [address] (EVAR) Scheduled Procedures Name Priority Associated Diagnoses Date/Ti me REPAIR, ANEURYSM, AORTA, ENDOVASCULAR Aneurysm of infrarenal abdominal aorta (HCC) 03/08/2025 9:53 AM EDT documented as of this encounter Procedures Procedure Name Priority Date/Time Associated Diagnosis Comments CTA ABDOMEN & PELVIS Routine 01/16/2025 9:11 AM EDT AAA (abdominal aortic aneurysm) (HCC) documented in this encounter Results * CTA abdomen & pelvis (01/16/2025 9:11 AM EDT) Anatomical Region Laterality Modality Abdomen, Pelvis Computed Tomogra phy (CT) 01/16/2025 10:3 6 AM EDT Impressions 01/16/2025 10:42 AM EDT 53 mm infrarenal abdominal aortic aneurysm as described. 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 Umbilical hernia containing a nonobstructed loop of small bowel. Images reviewed, interpreted, and dictated by Andre Casas MD Narrative 01/16/2025 10:[address] ANGIOGRAPHY ABDOMEN AND PELVIS HISTORY: Abdominal aortic aneurysm. COMPARISON: None. PROCEDURE: Thin section axial CT images of the abdomen and pelvis were obtained with IV contrast. Sagittal and coronal reformatted images were also obtained and reviewed. This study was performed with techniques to keep radiation doses as low as reasonably achievable, (ALARA). Individualized dose reduction techniques using automated exposure control or adjustment of mA and/or kV according to the patient size were employed. FINDINGS: CTA: An infrarenal abdominal aortic aneurysm is present that measures up to 53 mm in diameter. Moderate mural thrombus is present. The aneurysm arises 47 mm below the level of the renal arteries and extends inferiorly to the aortic bifurcation. The celiac axis and superior mesenteric arteries are patent without significant stenosis. The inferior mesenteric artery is patent. No significant renal artery stenosis is seen. A 20 mm aneurysm is seen of the right common iliac artery and 17 mm aneurysm of the left common iliac artery. There is no evidence of significant iliac artery stenosis. The internal iliac arteries are patent. Review of the remainder of the abdomen and pelvis reveals a small pericardial effusion. There is mild atelectasis or scarring in the lung bases. No acute inflammatory process is identified. No abnormal fluid collection is seen. The appendix is unremarkable. There is an umbilical hernia which contains fat and a loop of nonobstructed small bowel. The prostate is diffusely enlarged. Procedure Note Andre Casas MD - 01/16/2025 CT ANGIOGRAPHY ABDOMEN AND PELVIS HISTORY: Abdominal aortic aneurysm. COMPARISON: None. PROCEDURE: Thin section axial CT images of the abdomen and pelvis were obtained with IV contrast. Sagittal and coronal reformatted images were also obtained and reviewed. This study was performed with techniques to keep radiation doses as low as reasonably achievable, (ALARA). Individualized dose reduction techniques using automated exposure control or adjustment of mA and/or kV according to the patient size were employed. FINDINGS: CTA: An infrarenal abdominal aortic aneurysm is present that measures up to 53 mm in diameter. Moderate mural thrombus is present. The aneurysm arises 47 mm below the level of the renal arteries and extends inferiorly to the aortic bifurcation. The celiac axis and superior mesenteric arteries are patent without significant stenosis. The inferior mesenteric artery is patent. No significant renal artery stenosis is seen. A 20 mm aneurysm is seen of the right common iliac artery and 17 mm aneurysm of the left common iliac artery. There is no evidence of significant iliac artery stenosis. The internal iliac arteries are patent. Review of the remainder of the abdomen and pelvis reveals a small pericardial effusion. There is mild atelectasis or scarring in the lung bases. No acute inflammatory process is identified. No abnormal fluid collection is seen. The appendix is unremarkable. There is an umbilical hernia which contains fat and a loop of nonobstructed small bowel. The prostate is diffusely enlarged. IMPRESSION: 53 mm infrarenal abdominal aortic aneurysm as described. 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 Umbilical hernia containing a nonobstructed loop of small bowel. Images reviewed, interpreted, and dictated by Andre Casas MD Nathan Starr MD IMG CT ORDERABLES Final Result documented in this encounter Visit Diagnoses Diagnosis AAA (abdominal aortic aneurysm) (HCC) Abdominal aneurysm without mention of rupture Aneurysm of infrarenal abdominal aorta (HCC) documented in this encounter Administered Medications Inactive Administered Medications - up to 3 most recent administrations Medication Order MAR Action Action Date Dose Rate Site iopamidoL (ISOVUE-370) 370 mg iodine /mL (76 %) injection 100 mL 100 mL Once, intravenous, On Wed01/16/25 at 0930, For 1 dose, Intra-op Given 01/16/2025 9:11 AM EDT 100 mLs documented in this encounter
--- NOTE | 2025-02-19 07:00 | CT_ITS ---
FINAL REPORT TECHNIQUE: Multiple axial CT sections were performed through the face without IV contrast. Coronal reconstruction images were performed. This study was performed with techniques to keep radiation doses as low as reasonably achievable (ALARA). Individualized dose reduction techniques using automated exposure control or adjustment of mA and/or kV according to the patient's size were employed. CLINICAL HISTORY: Ruling out sinusitis causing vertigo COMPARISON: None FINDINGS: Mild mucoperiosteal thickening is seen in the ethmoid air cells in both maxillary sinuses. The paranasal sinuses are well aerated. There is no fracture. There are no air-fluid levels. The ostiomeatal units are adequately patent. IMPRESSION: Mild changes of chronic bilateral ethmoid and maxillary sinusitis. Reviewed, Interpreted and Dictated by Gurjit Perez MD Transcribed by Deborah Leslie Authenticated and [facility]
--- OUTSIDE RECORDS SUMMARY | 2025-02-19 07:01 | XMS_ITS | Patient Health Record ---
Author Organization [facility] Address [address] [place] [id number] Care Team Providers Care Position Description Manager Name Role Phone Mannie Kathleen Primary Care Provider [phone] Allergies Allergen (clinical drug ingredient) Drug/Non Drug Allergy documented on EMR Reaction Allergy Type Onset Date Status lisinopril Lisinopril cough Drug Allergy Activ e Results Component Value Reference Range Notes P-Comprehensive Metabolic Pa woody (CMP) Reviewed date:10/27/2024 12:26:23 PM Interpretation:Normal Performing Lab: Notes/Report: Test performed by [facility], [address] , [address], [place] [address] Deep Tolbert MD, Ride Assembly Supervisor CLIA: [id number] Sodium 141 135-145 mmol/L Potassium 3.9 3.5-5.3 [...] 33 Performing Lab: Notes/Report: Test performed by [facility] [address] , [address], [place] [address] Deep Tolbert MD, Ride Assembly Supervisor CLIA: [id number] Cholesterol 137 <200 mg/dL Triglycerides 219 <150 [...] Results: 60 Units: mg/dL % Change: +1% Ultrasound : Aorta Reviewed date:05/03/2024 07:56:16 PM Interpretation:4.6 cm Performing Lab: Notes/Report: 4.6 cm P-Lipid Panel Reviewed date:04/20/2024 05:34:31 PM Interpretation:trigs 206, hdl 33 Performing Lab: Notes/Report: Test performed by [facility] [address] [place] [address] , [place] [address] Deep Tolbert MD, Ride Assembly Supervisor CLIA: [id number] Cholesterol 133 <200 mg/dL Triglycerides 206 <150 mg/dL HDL Cholesterol 33 >39 mg/dL Cholesterol / HDL Ratio 4.03 0.00-4.99 Ratio Non-HDL Cholesterol 100 <130 mg/dL LDL Cholesterol (Calculation) 59 <130 mg/dL LDL Cholesterol Levels* Less than [...] Results: 59 Units: mg/dL % Change: +9% P-Comprehensive Metabolic Pa woody (CMP) Reviewed date:04/20/2024 05:34:31 PM Interpretation:gluc 108 Performing Lab: Notes/Report: Test performed by [facility] , [address], [place] [address] Deep Tolbert MD, Ride Assembly Supervisor CLIA: [id number] Sodium 140 135-145 mmol/L Potassium 4.3 3.5-5.3 mmol/L Chloride 105 97-108 mmol/L CO2 25 22-32 mmol/L Glucose 108 65-99 mg/dL BUN 18 8-23 mg/dL Creatinine 1.18 0.70-1.30 mg/dL Calcium 9.1 8.6-10.4 mg/dL eGFR by Creatinine 64 >59 mL/min/1.73m2 Protein 7.0 6.0-8.3 g/dL Albumin 4.2 3.5-5.3 g/dL Alkaline Phosphatase 94 40-129 IU/L ALT (SGPT) 27 <5-55 IU/L AST (SGOT) 19 <5-46 IU/L Bilirubin, Total 0.6 <0.2-1.2 mg/dL A/G Ratio 1.5 1.1-2.5 mg/dL Reason For Referral Reason Dr. Starr for AAA me asuring 4.6 cm Diagnosis 1 Abdominal aortic ane urysm (AAA) without rupture, unspecified part (I71.40) Referral Organization Ej Referring Provider First Name Mannie Carr Referring Provider Last Name Frannie Referring Provider Speciality Family Teddy wade Referred Provider Surgery, . Referred Provider Specialty General Surg bryan General Notes Francie Fontenot 024 9:23:31 AM > faxed to [facility], Francie Fontenot 08/25/2024 9:40:16 AM > appt is 10/07/2024 at 09:30am with Dr. Starr Referral Priority Routine Medications Medication SIG (Take, Route, Frequency, Duration) Notes Start Date End Date Status Norvasc 5 MG 1 tab(s) orally Two times a day Active Centrum Silver - 1 tab(s) orally once a day Active Proscar 5 MG 1 tab(s) orally once daily Active Montelukast Sodium 10 MG 1 tab(s) orally once a day as needed Active ZyrTEC Allergy 10 MG 1 tab(s) orally once a day Active Albuterol Sulfate HFA 108 (90 Base) MCG/ACT 1 puff as needed Inhalation every 4 hrs Active Anoro Ellipta 62.5-25 MCG/ACT 1 puff Inhalation Once a day Active Meclizine HCl 25 MG 1 tab(s) Orally Thre e times a day 12/25/2024 Active Atorvastatin Calcium 40 MG 1 tab(s) oral ly once a day (at bedtime) Active Arexvy 120 MCG/0.5ML as directed Intramuscular Active Lasix 20 MG 1 tab(s) orally once a day prn swelling Active Losartan Potassium 100 MG 1 tab(s) orally once a day Active Medrol 4 MG as directed Orally 01/09/2025 Active Immunizations Vaccine Route Administration Date Status Comme nts xFluzone High Dose-private (65yr&older) Unknown 07/11/2024 Administered xFlu shot-36 months and older IM Intramuscular 07/27/2008 Administered xFlu shot-36 months and older IM Intramuscular 08/27/2009 Administered Prevnar (PCV20) IM Intramuscular 10/19/2024 Administered Prevnar (PCV13) IM Intramuscular 07/12/2015 Administered PNEUMOVAX 23 VACCINE IM Intramuscular 11/05/2016 Administe red Fluzone High Dose (65yr and older) IM Intramuscular 07/12/2015 Administered Fluzone High Dose (65yr and older) IM Intramuscular 05/25/2017 Administered Fluzone High Dose (65yr and older) IM Intramuscular 07/18/2018 Administered Fluzone High Dose (65yr and older) IM Intramuscular 07/07/2019 Administered Fluzone High Dose (65yr and older) IM Intramuscular 05/31/2020 Administered Fluzone High Dose (65yr and older) IM Intramuscular 05/23/2021 Administered Fluzone High Dose (65yr and older) IM Intramuscular 07/13/2022 Administered Fluzone High Dose (65yr and older) IM Intramuscular 07/22/2023 Administered COVID 19 Pfizer Unknown 10/17/2020 Administered COVID 19 Pfizer Unknown 11/07/2020 Administered COVID 19 Pfizer Unknown 06/18/2021 Administered Social History Tobacco Use: Social History [...] Problem Status W/U Status Risk Notes Problem Essential hypertension (51441293) Essential (primary) hypertension (I10) Active confirmed Problem Sinusitis (79624362) Sinusitis (J32.9) Active confirmed Problem 192813345 Seasonal allergies (J30.2) Active confirmed Problem Body mass index 40+ - severely obese (728922405) BMI 45.0-49.9, adult (Z68.42) Active confirmed Problem 417938920 Primary generalized (osteo)arthritis (M15.0) Active confirmed Problem 595220303 Pulmonary nodule (R91.1) Active confirmed Problem Hyperlipidemia (59785441) Hyperlipidemia, unspecified (E78.5) Active confirmed Problem 06205885 Chronic obstructive pulmonary disease, unspecified COPD type (J44.9) Active confirmed Problem 961894114240215 Primary osteoarthritis of right knee (M17.11) Active confirmed Problem Body mass index 40+ - morbidly obese (032681000) BMI 40.0-44.9, adult (Z68.41) Active confirmed Problem 835163534 Dyslipidemia (E78.5) Active confirmed Problem Abdominal aortic aneurysm (disorder) (231125933) AAA (abdominal aortic aneurysm) without rupture (I71.4) Active confirmed Problem History of nicotine dependence (50628180362779457 1) History of nicotine dependence (Z87.891) Active confirmed Problem 385213928 Tobacco use disorder (F17.200) Active confirmed Problem 707513626 Benign prostatic hyperplasia, unspecified whether lower urinary tract symptoms present (N40.0) Active confirmed Problem Localized, primary osteoarthritis of the pelvic region and thigh (774373558) Osteoarthritis of right hip, unspecified osteoarthritis type (M16.11) Active confirmed Problem Abdominal aortic aneurysm without rupture (disorder) (88337968) Abdominal aortic aneurysm, without rupture, unspecified (I71.40) Active confirmed Vital Signs Heart Rate 99 /min 01/09/2025 Blood pressure diastolic 82 mm Hg 01/09/2025 Height 66.50 in 01/09/2025 Blood pressure systolic 120 mm Hg 01/09/2025 Weight 288.2 lbs 01/09/2025 BMI 45.81 kg/m2 01/09/2025 Encounters Encounter Location Date Provider Diagnosis Ej [address] [id number] 04/18/2024 R Bruno Frannie Dyslipidemia E78.5 a nd Essential (primary) hypertension I10 Rachel [address] [id number] 04/20/2024 R Bruno Frannie Dyslipidemia E78.5 ; Essential (primary) hypertension I10 ; Benign prostatic hyperplasia, unspecified whether lower urinary tract symptoms present N40.0 ; Chronic obstructive pulmonary disease, unspecified COPD type J44.9 ; Seasonal allergies J30.2 ; History of nicotine dependence Z87.891 ; Pulmonary nodule R91.1 and Abdominal aortic aneurysm, without rupture, unspecified I71.40 [address] [address] [place], [place] [id number] 10/17/2024 R Bruno Frannie Hyperlipidemia, unspecified E78.5 and Essential (primary) hypertension I10 Rachel [address] [place] [id number] 10/19/2024 R Bruno Kathleen Adult general medica l examination Z00.00 ; Dyslipidemia E78.5 ; Essential (primary) hypertension I10 ; Benign prostatic hyperplasia, unspecified whether lower urinary tract symptoms present N40.0 ; Chronic obstructive pulmonary disease, unspecified COPD type J44.9 ; Seasonal allergies J30.2 ; History of nicotine dependence Z87.891 ; Pulmonary nodule R91.1 ; Abdominal aortic aneurysm, without rupture, unspecified I71.40 and BMI 45.0-49.9, adult Z68.42 [facility] [address] [facility] [address] [place], [place] [id number] 01/09/2025 R Bruno Kathleen Vertigo R42 and Sinusitis J32.9 [facility] [address] [facility] [address] [facility] [address] [place], [place] [id number] 04/13/2024 R Bruno Kathleen [facility] [address] [facility] [address] [facility] [address] [place], [place] [id number] 05/02/2024 R Bruno Kathleen [facility] [address] [facility] [address] [facility] [address] [place], [place] [id number] 08/23/2024 R Bruno Kathleen Abdominal aortic aneurysm (AAA) without rupture, unspecified part I71.40 [facility] [address] [facility] [address] [place], [place] [id number] 12/25/2024 R Bruno Kathleen Assessments Encounter Date Diagnosis (ICD Code) Assessment Notes Treatment Notes Treatment Clinical Notes Section Notes 01/09/2025 Sinusitis (ICD-10 - J32.9) Continue Z-Jean as prescribed by his dentist 01/09/2025 Vertigo (ICD-10 - R42) 04/20/2024 Essential (primary) hypertension (ICD-10 - I10) 04/20/2024 Dyslipidemia (ICD-10 - E78.5) 08/23/2024 Abdominal aortic aneurysm (AAA) without rupture, unspecified part (ICD-10 - I71.40) 10/19/2024 Dyslipidemia (ICD-10 - E78.5) 10/19/2024 Adult general medical examination (ICD-10 - Z00.00) Patient instructed to return to office Annually for Annual Wellness Visits to include annual screenings of Pain assessment, Functional Ability assessment, Cognitive Ability assessment, Fall Risk assessment, Depression screening and Bladder control screening. 04/18/2024 Essential (primary) hypertension (ICD-10 - I10) 04/18/2024 Dyslipidemia (ICD-10 - E78.5) 10/19/2024 Essential (primary) hypertension (ICD-10 - I10) 04/20/2024 Benign prostatic hyperplasia, unspecified whether lower urinary tract symptoms present (ICD-10 - N40.0) 10/17/2024 Hyperlipidemia, unspecified (ICD-10 - E78.5) 10/17/2024 Essential (primary) hypertension (ICD-10 - I10) 04/20/2024 Chronic obstructive pulmonary disease, unspecified COPD type (ICD-10 - J44.9) 10/19/2024 Benign prostatic hyperplasia, unspecified whether lower urinary tract symptoms present (ICD-10 - N40.0) 10/19/2024 Chronic obstructive pulmonary disease, unspecified COPD type (ICD-10 - J44.9) 04/20/2024 Seasonal allergies (ICD-10 - J30.2) 04/20/2024 History of nicotine dependence (ICD-10 - Z87.891) 10/19/2024 Seasonal allergies (ICD-10 - J30.2) 10/19/2024 History of nicotine dependence (ICD-10 - Z87.891) 04/20/2024 Pulmonary nodule (ICD-10 - R91.1) 04/20/2024 Abdominal aortic aneurysm, without rupture, unspecified (ICD-10 - I71.40) 10/19/2024 Pulmonary nodule (ICD-10 - R91.1) 10/19/2024 Abdominal aortic aneurysm, without rupture, unspecified (ICD-10 - I71.40) Continue f/u with Dr. Starr 10/19/2024 BMI 45.0-49.9, adult (ICD-10 - Z68.42) Plan Of Treatment Next Appt Details Provider Name:Mannie Baeza, 04/19/2025 09:30:00 AM, [address], [place], [place], [id number], Insurance Providers Payer Name Payer Address Payer Phone Subscriber Number Group Number Insured Name Patient Relationship to Insured Coverage Start Date Coverage End Date [employer] [address] [address] [place], [place] [id number] ROBIN Luiz Self - patient is the insured Medications Administered Medication Instructions Date of Administration Dosage Notes Dexamethasone 12/10/2009 1 mL Dexamethasone 07/25/2018 1 mL Dexamethasone 11/29/2018 1 mL Medical (General) History Medical History History ICD Code hyperlipidemia HBP PUD by EGD Dr. Frost - 2017 BPH - follows with Dr. Manrique COPD Tobacco abuse, 55 pack year smoking hist ory as of 2019 - Quit smoking 11/2021 Pulmonary nodule - LDCT 06/14 019 - follows with Dr. Degroot. Negative PET scan 03/2024 AAA - 3.8 cm (2021); 4.6 (2021) ADELAIDA Hypertension I10 Surgical History Surgery Date(Month/Year) W[employer] testicle removed prostate bx C-scope/ polyp/ Dr. Frost 09/20/17 C-scope/ polyps/ Dr. Frost 11/2020 Hospitalization History Reason Date(Month/Year) [facility] ER-cut left thigh with chainsaw 05/12 same as above
--- OUTSIDE RECORDS SUMMARY | 2025-02-19 07:02 | XMS_ITS | Referral Summary ---
Author Organization [facility] Address [address] [place] [address] Care Team Providers Care Trailer Mechanic Name Role Phone Unavailable Primary Care Provider Unavailabl e Encounters Date Type Department Care Team Description 01/16/2025 8:33 AM EDT - 01/16/2025 11:59 PM EDT Hospital Encounter On License Of [facility] [address] [facility] [address] [place] [address] Nathan Starr MD AAA (abdominal aortic aneurysm) (HCC) Discharge Disposition: Home or Self Care from Last 3 Months Allergies No known active allergies Social History Tobacco Use Types Packs/Day Years [...] Date Gunnar rded Speak language other than Israeli at home Not on file 12/27/2023 Want [...] on file Sexual Orientation Not on file Plan of Treatment Upcoming Encounters Date Type Department Care Team (Late st Contact Info) Description 03/08/2025 9:53 AM EDT Hospital Encounter [facility] [address] [place] [address] Nathan Starr MD [address] [place] [address] 03/08/2025 9:53 AM EDT - 03/08/2025 12:03 PM EDT Surgery [facility] [address] [place] [address] Nathan Starr MD [address] [place] [id number] (EVAR) Scheduled Procedures Name Priority Associated Diagnoses Date/Ti me REPAIR, ANEURYSM, AORTA, ENDOVASCULAR Aneurysm of infrarenal abdominal aorta (HCC) 03/08/2025 9:53 AM EDT Procedures Procedure Name Priority Date/Time Associated Diagnosis Comments CTA ABDOMEN & PELVIS Routine 01/16/2025 9:11 AM EDT AAA (abdominal aortic aneurysm) (HCC) from Last 3 Months Results * CTA abdomen & pelvis (01/16/2025 [...] interpreted, and dictated by Andre Casas MD us Nathan Starr MD IMG CT ORDERABLES Final Result from Last 3 Months Insurance [facility] MEDICARE ADVANTAGE
--- OUTSIDE RECORDS SUMMARY | 2025-02-19 07:02 | XMS_ITS | Clinical Summary ---
Author Organization [facility] Address [address] [place] [address] Care Team Providers Care Director Of Sleep Name Role Phone Unavailable Primary Care Provider Unavailabl e Allergies No known active allergies Encounters Date Type Department Care Team Description 01/16/2025 8:33 AM EDT - 01/16/2025 11:59 PM EDT Hospital Encounter [facility] [address] [facility] [address] [place] [address] Nathan Starr MD AAA (abdominal aortic aneurysm) ([facility]) Discharge Disposition: Home or Self Care from Last 3 Months Social History Tobacco Use Types Packs/Day Years [...] Date Gunnar rded Speak language other than Argentine at home Not on file 12/27/2023 Want [...] Description 03/08/2025 9:53 AM EDT Hospital Encounter [facility] Operating Room [address] [place] [address] Nathan Starr MD [address] [place] [address] 03/08/2025 9:53 AM EDT - 03/08/2025 12:03 PM EDT Surgery [facility] [address] [place] [address] Nathan Starr MD [address] [place] [address] (EVAR) Scheduled Procedures Name Priority Associated Diagnoses Date/Ti me REPAIR, ANEURYSM, AORTA, ENDOVASCULAR Aneurysm of infrarenal abdominal aorta (HCC) 03/08/2025 9:53 AM EDT Health Maintenance Due Date Last Done Comments Depression Screening (12+) 1959 Tobacco Cessation Counseling and Screening (12+) 1959 Hepatitis C Screening 1965 DTAP/TDAP/TD VACCINES (1 - Tdap) 1966 Pneumococcal 50+ years (1 of 1 - PCV) 1997 Shingles Vaccine (Zoster) (1 of 2) 1997 Respiratory Syncytial Virus (RSV) Adult or (1 - 1-dose 75+ series) 2022 COVID-19 VACCINE (5 - 2023-2 5 season) 2024 07/29/2022, 06/18/2021, 11/07/2020, Additional history exists Falls Risk Screening 09/13/2024 Medicare IPPE (Welcome to Medicare) [id number] 09/13/2024 Influenza Vaccine (Season Ended) 2025 07/13/2022, 05/23/2021, 05/31/2020, Additional history exists Procedures Procedure Name Priority Date/Time Associated Diagnosis [...] prostate is diffusely enlarged. Procedure Note Andre Caass MD - 01/16/2025 CT ANGIOGRAPHY ABDOMEN AND [...] Final Result from Last 3 Months Insurance [facility] MEDICARE ADVANTAGE
== END 2025-02-19 23:59 | disposition home or self-care (01) ==
LOC: RAD 06:59
PROVIDERS: PCP Family Medicine; Visit Provider Nurse Practitioner
DX: J32.0 Chronic maxillary sinusitis (principal); J32.2 Chronic ethmoidal sinusitis; R42 Dizziness and giddiness
CPT/HCPCS: 70486

== ENCOUNTER 2025-03-30 08:47 | Outpatient (RCR) | payer MEDICARE, SELFPAY ==
--- NOTE | 2025-03-30 10:03 | HMH.PTOPEV ---
PT Outpatient Evaluation Rehab PT Outpatient Evaluation Start: 03/30/25 08:55 Freq: Status: Active Protocol: Document 03/30/25 09:47 PHORNE (Rec: 03/30/25 10:03 PHORNE [id number]) E-signed By Tk Corbin, PT Outpatient Therapy Subjective History Subjective History This is the initial PT eval for Luiz Wakefield, 79 yowm who presents with c/o vertigo and dizziness x ~ 4 mos. He reports suffering a bout of COVID-19 infection in November of this year which lasted 2-3 days, but dissipated quickly with mild symptoms. Shortly afterwards though, he had a sudden onset of vertigo at night and has been dealing with it since that time. He reports consistent background dizziness and nausea with intermittent bouts of vertigo that occur most frequently with bending forward on standing and rolling to his L side on supine. He reports the vertigo typically lasts 15-30 sec when it occurs, but has lasting effects on his feelings of dizziness. He has considerable possibly contributing PMH with chronic sinus issues, ADELAIDA requiring bi-pap, a-fib, AAA ( awaiting repair), tinnitus B (worse in R ear), HTN, possible idiopathic neuropathy, decreased hearing worse on the R. Chief Complaint Other Symptom Type Other Balance Eval Hx of Falls Hx Falls No Nystagmus Nystagmus Presence Bilateral Nystagmus Geotropic,Left Torsion,Latency - Immediate Description Oculomotor Gaze Oculomotor Gaze Nml: Vergence Smooth Pursuit Saccades VOR Cancellation Cover/Uncover Cross Cover Miscellaneous Dx PT Eval Objective Objective Occulomotor testing: VOR cancellation with minimal symptoms to L side, but no nystagmus noted. Saccades, Cross cover, Head shake nystagmus are all normal for age group Yanet-hallpike test: performed appropriately with positive upbeating and L torsional nystagmus on L side which denotes most likely denotes L side PSC canalithiasis. Outpatient Therapy Assessment Impairments Problems/ Impaired Self Care/Self Management Impairmments Prognosis Rehab Potential Good Comment Impairments include increased vertigo. Signs and symptoms consistent with L side PSC canlaithiasis resulting in BPPV. Skilled therapy is indicated in order to reduce vertigo symptoms to aid pt return to PLOF. Clinical Impression Consistent with Yes Diagnosis Short Term Goals Number of Weeks 2 Improve Self Care/ Yes: Minimal vertigo with rolling to the L side in bed Self Management Head Nurse Goals Number of Weeks 4 Improve Self Care/ Yes: No vertigo with rolling to L side or bending Self Management forward from standing Outpatient Therapy Plan of Care Treatment Plan May Include Therapeutic Exercise Yes Including Home Exercise Program ADL/Self Care Yes Education Eval/Re-Eval Yes Canalith Yes Repositioning Technique Frequency Times per week 1 Duration Number of Weeks 4 Addendums This patient is a No candidate for social or vocational rehab ? Patient/Guardian Yes verbally acknowledges understanding of treatment program and consents to further treatment? Patient/Guardian Yes verbally acknowledges understanding of diagnosis, prognosis and goals for treatment? Eval Complexity PT Charges 35476 - High Complexity Shoulder/Elbow Eval Shoulder Objective Measurements Elbow Objective Measurements PHYSICIAN CERTIFICATION: I certify the specified therapy services for Luiz Wakefield (Mike) are required, authorized, and reviewed every 30 days.
== END 2025-03-30 23:59 | disposition home or self-care (01) ==
LOC: PT 08:47
PROVIDERS: PCP Family Medicine; Visit Provider Nurse Practitioner
DX: H81.13 Benign paroxysmal vertigo, bilateral (principal)
CPT/HCPCS: 95992; 97163

== ENCOUNTER → 2025-04-17 10:50 | Outpatient (RCR) | payer MEDICARE, SELFPAY | LOC: PT 10:50 | PROVIDERS: Visit Provider Nurse Practitioner | DX: H81.13 Benign paroxysmal vertigo, bilateral (principal) | CPT/HCPCS: 95992; 97110 ==